=== PATIENT | female | born 1995 | race Caucasian/White ===

== ENCOUNTER 2019-07-15 22:17 | Emergency (ER) | payer OTHER, SELFPAY ==
[2019-07-15 22:20] VITALS: BP 139/86; PULSE 85; RESP 18; TEMP 37.1; O2SAT 100
[2019-07-16] LABS: Basophils Absolute Auto 0.1 K/mm3 (0.0-0.1); Eosinophils Absolute Auto 0.2 K/mm3 (0-0.3); Eosinophils Percent Auto 2.7 % (0-4.4); Hematocrit 39.3 % (37.0-47.0); Hemoglobin 13.6 g/dL (12.0-15.0); Immature Granulocyte Absolute 0.03 K/mm3 (0.00-0.031); Immature Granulocyte Percent A 0.3 % (0-0.5); Lymphocytes Absolute Auto 2.84 K/mm3 (0.9-3.2); Lymphocytes Percent Auto 31.9 % (18.3-44.2); Mean Corpuscular HGB Conc 34.6 g/dl (32-36); Mean Corpuscular Volume 89.5 fl (80-100); Mean Platelet Volume 10.4 fl (7.4-10.4); Monocytes Absolute Auto 0.6 K/mm3 (0.1-0.6); Monocytes Percent Auto 6.4 % (2.6-8.5); Neutrophils Absolute Auto 5.1 K/mm3 (1.3-6.7); Neutrophils Percent Auto 57.7 % (45.5-73.1); Platelet Count Result 335 k/mm3 (150-375); Red Blood Count 4.39 M/mm3 (4.2-5.4); Red Cell Distribution Width 11.4 % (11.5-14.5); White Blood Count 8.9 K/mm3 (4.5-10.0)
[2019-07-16 00:04] LABS: Add Urine Microscopic? YES; Appearance Urine Clear (Clear); Bilirubin Urine Negative (Negative); Blood Urine Negative (Negative); Color Urine Yellow (Yellow); Glucose Urine UA Negative (Negative); Ketones Urine Negative (Negative); Leukocyte Esterase Ur Negative LEU/UL (Negative); Mucus Urine Few /lpf; Nitrate Urine Negative (Negative); Protein Urine Negative (Negative); RBC Urine 0-2 /hpf (0-2); Specific Grav Ur 1.021 (1.001-1.035); Squamous Epithelial Cell Urine Moderate /hpf (Few); WBC Urine 0-3 /hpf
[2019-07-16 00:12] LABS: Alanine Aminotransferase 9 U/L (4-35); Alkaline Phosphatase 74 U/L (38-126); Aspartate Amino Transferase 19 U/L (14-36); Bilirubin,Total 0.9 mg/dL (0.2-1.3); Blood Urea Nitrogen 11 mg/dL (7-17); Calcium 9.1 mg/dL (8.4-10.2); Carbon Dioxide 28 mmol/L (22-30); Chloride 104 mmol/L (98-107); Estimated CRCL calculation 69 ml/min; Estimated Glomerular Filt Rate > 60; Glucose 67 mg/dL (65-105); Magnesium 2.3 mg/dL (1.6-2.3); Potassium 3.5 mmol/L (3.4-5.0); Sodium 141 mmol/L (137-145)
--- NOTE | 2019-07-16 00:13 | ECG_ITS ---
Measurements Intervals [place] Rate: 60 P: 42 MO: 124 QRS: 75 QRSD: 85 T: 50 QT: 394 QTc: 396 Interpretive Statements SINUS RHYTHM NORMAL ECG Electronically Signed On 07-16-2019 7:12:36 CDT by Santana Mcmullen D.O.
--- NOTE | 2019-07-16 00:39 | ED.ARRPALP ---
HPI - Arrhythmia/Palpitations General Chief Complaint: Arrhythmia/Palpitations Stated Complaint: FEEL HEARTBEAT IN THROAT, FATIGUE, WT LOSS Time Seen by Provider: 07/16/19 00:28 Source: patient Mode of arrival: ambulatory Limitations: no limitations History of Present Illness HPI narrative: This patient is a 23 year old female with history of anxiety and depression who presents for evaluation of palpitations. Patient started taking Effexor 3 weeks for depression, and she states for the past 2 weeks she has had constant sensation of heart pounding . She states it feels like a constant panic attack. She also reports fatigue and a 10 pound weight loss. She denies fever, chills, nausea, vomiting, cough, chest pain, abdominal pain or shortness of breath. She told her PCP her symptoms and she recommended for patent to come to ER. Patient has not spoken to her psychiatrist who started the medications about her symptoms. MD complaint: palpitations Related Data Home Medications Medication Instructions Recorded Confirmed clonazepam 1 mg PO HS 07/15/19 venlafaxine 37.5 mg PO DAILY 07/15/19 Allergies Allergy/AdvReac Type Severity Reaction Status Date / Time No Known Allergies Allergy Unverified 07/15/19 22:37 Review of Systems Review of Systems: All systems reviewed & are unremarkable except as noted in HPI and below Constitutional: Constitutional: Denies chills and Denies fever(s) ENT: Denies dysphagia, Denies dizziness, Denies nasal congestion and Denies sore throat Cardiovascular: Cardiovascular: Denies chest pain and Reports rapid heart rate Respiratory: Respiratory: Denies cough and Denies dyspnea Gastrointestinal: Gastrointestinal: Denies abdominal pain, Denies diarrhea, Denies nausea and Denies vomiting Psychiatric: Psychiatric: Reports anxiety PMFSH Past Medical History Medical History (Updated 07/16/19 @ 02:14 by Mirian Crews MD) Anxiety Depression Social History Social History (Updated 07/16/19 @ 00:42 by Mirian Crews MD) Smoking status: Never smoker Gender identity (if verbalized by the patient): Female Exam Narrative: Exam Narrative: GENERAL: Well-appearing, well-nourished, and in no acute distress. HEAD: Normocephalic, atraumatic EYES: PERRLA and EOMI, conjunctiva clear without discharge EARS: TM's clear bilaterally without erythema or dullness NOSE: Nares clear, no rhinorrhea or epistaxis THROAT:Mucous membranes moist, Oropharynx normal without erythema, exudate, peritonsillar swelling or fluctuance NECK: Supple, without lymphadenopathy or mass RESPIRATORY: No respiratory distress, Airway patent, Respirations non-labored, Clear to auscultation without rales, rhonchi or wheeze HEART: Regular rate and rhythm. No murmur heard. Normal peripheral pulses. ABDOMEN: Soft, nontender, nondistended, normal active bowel sounds. No masses. No rebound or guarding, No organomegaly. EXTREMITIES: No edema, normal strength with full range of motion. SKIN: Warm, dry, normal color without rash NEURO: Alert and oriented x3. CN 2-12 grossly intact. No focal deficits. PSYCH: Normal mood and affect. Course Reevaluation(s) Reevaluation #1: Patient is resting in bed in no acute distress. I have discussed that labs and EKG are unremarkable. Her symptoms are likely due to her starting Effexor. She will call her psychiatrist today to discuss medication side effect Date: 07/16/19 Time: 02:12 Vital Signs Vital signs: Vital Signs Temperature 98.7 F 07/15/19 22:20 Pulse Rate 85 07/15/19 22:20 Respiratory Rate 18 07/15/19 22:20 Blood Pressure 139/86 07/15/19 22:20 Pulse Oximetry 100 07/15/19 22:20 Temperature 98.7 F 07/15/19 22:20 Pulse Rate 80 07/16/19 02:00 Respiratory Rate 17 07/16/19 02:00 Blood Pressure 120/70 07/16/19 02:00 Pulse Oximetry 99 07/16/19 02:00 MDM - Arrhythmia/Palpitations Lab Data Attestation: I reviewed the patient's lab
[2019-07-16 00:46] VITALS: BP 128/67; PULSE 57; RESP 16; O2SAT 100
[2019-07-16 01:59] LABS: Thyroid Stimulating Hormone Reflex 0.496 uIU/mL (0.465-4.68)
[2019-07-16 02:00] VITALS: BP 120/70; PULSE 80; RESP 17; O2SAT 99
== END 2019-07-16 02:25 | disposition home or self-care (01) ==
PROVIDERS: Emergency Provider General Practice; PCP Family Medicine
DX: R00.2 Palpitations (principal); F41.9 Anxiety disorder, unspecified; F32.9 Major depressive disorder, single episode, unspecified
CPT/HCPCS: 36415; 80053; 81001; 81025; 83735; 84443; 85025; 93005; 99284

== ENCOUNTER 2019-09-10 16:49 | Outpatient (CLI) | payer OTHER, SELFPAY ==
--- NOTE | ~2019-09-10 | XR_ITS ---
EXAMINATION: SCOLIOSIS DATE: 09/10/2019 17:22 CDT INDICATION: Chronic back pain TECHNIQUE: Standing AP and lateral views of the thoracolumbar spine FINDINGS: There are 12 rib bearing thoracic vertebral bodies and 5 non-rib bearing lumbar type verteb ral bodies. There is no listhesis, compression deformity or vertebral body anomalies. There is mild levoscoliosis of the thoracic spine measuring 6 degrees and dextrocurvature of the lumbar spine cent ered at L3 measuring 5 degrees. IMPRESSION: 1. Mild reverse S shaped scoliosis of the thoracolumbar spine. 2. No vertebral body anomalies. Reviewed, dictated and finalized at location A.
== END 2019-09-10 16:50 | disposition home or self-care (01) ==
PROVIDERS: PCP Family Medicine; Visit Provider Family Medicine
DX: M54.9 Dorsalgia, unspecified (principal); M41.85 Other forms of scoliosis, thoracolumbar region
CPT/HCPCS: 72082

== ENCOUNTER 2019-09-25 12:29 | Outpatient (RCR) | payer OTHER, SELFPAY ==
--- NOTE | 2019-09-25 17:47 | PTOPEVAL ---
INITIAL PHYSICAL THERAPY EVALUATION and PLAN OF CARE Thank you for referring Shahrzad Austin to [facility]. Shahrzad will be seen 2x/wk x 2 wks, 1x/wk x 4 wks. Please review, sign, date and return this plan of care GRACY. I agree with and certify that the following plan of care is medically necessary. Referring Physician Date Admitting Provider: Attending Provider: Ashley Bartlett, Referring Provider: *PT Outpatient Evaluation Start: 09/25/19 12:40 Freq: Status: Active Protocol: Document 09/25/19 12:35 NORMAN (Rec: 09/25/19 13:39 NORMAN [id number]) Therapy Assessment Status Assessment Status Assessment Status Evaluation Outpatient Past Medical History Past Medical History Source of Past Medical History Patient Neurological History Hx Neurological Disorders No Significant History Cardiovascular History Hx Cardiac Disorders No Significant History Respiratory History Hx Respiratory Disorders No Significant History Gastrointestinal History Hx Gastrointestinal Disorders No Significant History Genitourinary History Hx Kidney Stones Yes Musculoskeletal History Hx Back Pain Yes Hx Scoliosis Yes: age 15 Endocrine History Hx Endocrine Disorders No Significant History Psychosocial History Hx Anxiety Yes Evaluation Information Problem Diagnosis back pain Onset couple of months ago Subjective Information began to feel cramping Query Text:As Reported By Patient/ sensation in lower back that Family wouldn't go away. At age 15 diagnosed with scoliosis - did have pain - went to PT - did relieve back pain. Sleeping - difficulty getting comfortable - generally a side sleeper - unable to do - gets an uncomfortable feeling - not using any supportive pillows. Feels stiff/tired in a.m. - doesn't really loosen up as day goes on. 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 Home Meds Must Be Re-entered With Each Visit.
--- NOTE | 2019-10-07 13:20 | PCPTNOTE ---
Pt no showed for today's appointment.Clled pt stated she was not feeling well and was sorry she did not call. Reminded pt of anointment at 2:30.
--- NOTE | 2019-10-09 15:15 | PCPTNOTE ---
Patient did not show up for scheduled appointment this date.
--- NOTE | 2019-10-14 14:30 | PCPTNOTE ---
Patient did not show up for scheduled appointment this date. Phone call to be made in regards to no show and next appointment. If misses again - will d/c from PT.
--- NOTE | 2019-10-21 14:49 | PCPTNOTE ---
Patient did not show up for scheduled appointment this date. This is her 4th n/s - will d/c from PT
--- NOTE | 2019-10-23 09:33 | PCPTNOTE ---
PHYSICAL THERAPY DISCHARGE NOTE Admitting Provider: Attending Provider: Ashley Bartlett, Patient:Shahrzad Austin Date of :1995 Shahrzad has not returned for any further treatments since 09/25/2019, therefore she will be discharged at this time. Shahrzad?s initial visit was on 09/25/2019 12:30 and she did not show for any of her other visits. The goals have not been met. Thank you for referring Shahrzad to [facility]. Please review, sign, date and return this discharge summary GRACY. I have been updated about Shahrzad's current status and I agree with discharge from the above service at this time. Referring Physician Date
== END 2019-12-09 11:35 | disposition home or self-care (01) ==
LOC: ANHPT 12:29
PROVIDERS: PCP Family Medicine; Visit Provider Family Medicine
DX: M54.9 Dorsalgia, unspecified (principal); S06.9X0D Unspecified intracranial injury without loss of consciousness, subsequent encounter
CPT/HCPCS: 97161

== ENCOUNTER 2021-02-19 19:26 | Emergency (ER) | payer OTHER, SELFPAY ==
--- NOTE | ~2021-02-19 | XR_ITS ---
EXAMINATION: XR chest 1V portable DATE: 02/19/2021 23:42 INDICATION: Cough. TECHNIQUE: A single frontal view of the chest was obtained. COMPARISON: CT abdomen and pelvis 12/18/2017 FINDINGS: The chest demonstrates clear lungs without pneumonia, pleural effusion, or pneumothorax. Th e heart size is normal. IMPRESSION: 1. No acute cardiopulmonary disease. Reviewed, dictated and finalized at location A. [employer]
[2021-02-19 19:35] VITALS: BP 127/83; PULSE 86; RESP 17; TEMP 36.7; O2SAT 100
[2021-02-19 22:55] VITALS: BP 130/79; PULSE 72; RESP 16; O2SAT 100
[2021-02-20 00:18] LABS: Basophils Percent Auto 0.3 % (0.2-1.2); Hematocrit 40.5 % (37.0-47.0); Hemoglobin 13.8 g/dL (12.0-15.0); Immature Granulocyte Absolute 0.01 K/mm3 (0.00-0.031); Immature Granulocyte Percent A 0.3 % (0-0.5); Lymphocytes Absolute Auto 1.43 K/mm3 (0.9-3.2); Lymphocytes Percent Auto 44.5 % (18.3-44.2); Mean Corpuscular HGB Conc 34.1 g/dl (32-36); Monocytes Absolute Auto 0.4 K/mm3 (0.1-0.6); Monocytes Percent Auto 11.5 % (2.6-8.5); Neutrophils Absolute Auto 1.4 K/mm3 (1.3-6.7); Neutrophils Percent Auto 43.4 % (45.5-73.1); Platelet Count Result 233 k/mm3 (150-375); Red Blood Count 4.45 M/mm3 (4.2-5.4); Red Cell Distribution Width 11.8 % (11.5-14.5); White Blood Count 3.2 K/mm3 (4.5-10.0)
[2021-02-20 00:32] LABS: Alanine Aminotransferase 11 U/L (4-35); Albumin Level 4.5 g/dL (3.5-5.1); Alkaline Phosphatase 65 U/L (38-126); Anion Gap 9 mmol/L (8-16); Aspartate Amino Transferase 28 U/L (14-36); Bilirubin,Total 0.5 mg/dL (0.2-1.3); Blood Urea Nitrogen 10 mg/dL (7-17); Calcium 8.7 mg/dL (8.4-10.2); Carbon Dioxide 26 mmol/L (22-30); Chloride 104 mmol/L (98-107); Estimated CRCL calculation 85 ml/min; Estimated Glomerular Filt Rate > 60; Glucose 98 mg/dL (65-110); Potassium 3.7 mmol/L (3.4-5.0); Sodium 139 mmol/L (137-145)
[2021-02-20] MEDS: SODIUM CHLORIDE 0.9% IV 1,000 ML 999 ML IV CONT (00:32)
[2021-02-20] MEDS: METOCLOPRAMIDE HCL INJ 10 MG/2 ML VIAL IV PUSH (00:33)
[2021-02-20 00:52] LABS: Add Urine Microscopic? YES; Appearance Urine Cloudy (Clear); Bilirubin Urine Negative (Negative); Blood Urine Negative (Negative); Color Urine Yellow (Yellow); Glucose Urine UA Negative (Negative); Ketones Urine Trace mg/dL (Negative); Leukocyte Esterase Ur Negative LEU/UL (Negative); Mucus Urine Heavy /lpf; Nitrate Urine Negative (Negative); Protein Urine Negative (Negative); RBC Urine 0-2 /hpf (0-2); Specific Grav Ur 1.017 (1.001-1.035); Squamous Epithelial Cell Urine Few /hpf (Few); Urobilinogen Urine Negative mg/dL (<2.0); WBC Urine 0-3 /hpf
--- NOTE | 2021-02-20 01:23 | ED.GENADULT ---
HPI - General Adult General Chief complaint: Unspecified Stated complaint: Migraine, congestion, sick for a week. Time Seen by Provider: 02/19/21 23:14 History of Present Illness HPI narrative: Patient is a 25-year-old female presents emerged part with chief complaint of body aches feeling sick headache and loss of taste and smell. The patient reports has not been vaccinated for Covid reports he does feels generally unwell states that a little bit of a cough denies fever. Patient reports symptoms not improved by anything or they worsened by nothing Related Data Home Medications Medication Instructions Recorded Confirmed clonazepam 1 mg PO HS 07/15/19 venlafaxine 37.5 mg PO DAILY 07/15/19 Allergies Allergy/AdvReac Type Severity Reaction Status Date / Time No Known Allergies Allergy Verified 02/19/21 22:59 Review of Systems Review of Systems: A 10 system review of systems was completed on the patient and is negative except for what is stated in the HPI. Nursing and ancillary documentation was reviewed. PMFSH Past Medical History Medical History Anxiety Depression Social History Social History Smoking status: Never smoker Gender identity (if verbalized by the patient): Female Exam Narrative: GENERAL: Well-appearing, well-nourished, and in no acute distress. HEAD: Normocephalic, atraumatic. EYES: PERRLA and EOMI. ENT: Nares clear, no rhinorrhea or epistaxis. Mucous membranes moist. NECK: Supple. CHEST: Clear to auscultation. No respiratory distress. HEART: Regular rate and rhythm. No murmur heard. Normal peripheral pulses. ABDOMEN: Soft, nontender, nondistended, normal active bowel sounds. EXTREMITIES: Normal range of motion. No edema. SKIN: Warm, dry, no rash. NEURO: No focal deficits. Alert and oriented x3. PSYCH: Normal mood and affect. Course Course Emergency Course: Chest x-ray shows no evidence of infiltrate Vital Signs Vital signs: Vital Signs Temperature 36.7 C 02/19/21 19:35 Pulse Rate 86 02/19/21 19:35 Respiratory Rate 17 02/19/21 19:35 Blood Pressure 127/83 02/19/21 19:35 Pulse Oximetry 100 02/19/21 19:35 Temperature 36.7 C 02/19/21 19:35 Pulse Rate 72 02/19/21 22:55 Respiratory Rate 16 02/19/21 22:55 Blood Pressure 130/79 02/19/21 22:55 Pulse Oximetry 100 02/19/21 22:55 Medical Decision Making Vital Signs Vital Signs: Vital Signs Temperature 36.7 C 02/19/21 19:35 Pulse Rate 86 02/19/21 19:35 Respiratory Rate 17 02/19/21 19:35 Blood Pressure 127/83 02/19/21 19:35 Pulse Oximetry 100 02/19/21 19:35 Temperature 36.7 C 02/19/21 19:35 Pulse Rate 72 02/19/21 22:55 Respiratory Rate 16 02/19/21 22:55 Blood Pressure 130/79 02/19/21 22:55 Pulse Oximetry 100 02/19/21 22:55 Lab Data Result diagrams: 02/20/21 00:06 02/20/21 00:07 Labs: Lab Results 02/20/21 02/20/21 02/20/21 Range/Units 00:06 00:07 00:18 WBC 3.2 L (4.5-10.0) K/mm3 RBC 4.45 (4.2-5.4) M/mm3 Hgb 13.8 (12.0-15.0) g/dL Hct 40.5 (37.0-47.0) % MCV 91.0 (80-100) fl MCH 31.0 (26-34) pg MCHC 34.1 (32-36) g/dl RDW 11.8 (11.5-14.5) % Plt Count 233 (150-375) k/mm3 MPV 10.0 (7.4-10.4) fl Immature Gran % (Auto) 0.3 (0-0.5) % Neut % (Auto) 43.4 L (45.5-73.1) % Lymph % (Auto) 44.5 H (18.3-44.2) % [place] % (Auto) 11.5 H (2.6-8.5) % Eos % (Auto) 0.0 (0-4.4) % Baso % (Auto) 0.3 (0.2-1.2) % Lymph # (Auto) 1.43 (0.9-3.2) K/mm3 [place] # (Auto) 0.4 (0.1-0.6) K/mm3 Eos # (Auto) 0.0 (0-0.3) K/mm3 Baso # (Auto) 0.0 (0.0-0.1) K/mm3 Abs Immat Gran (auto) 0.01 (0.00-0.031) K/mm3 Absolute Neuts (auto) 1.4 (1.3-6.7) K/mm3 Absolute Nucleated RBC 0.0 (0.0-0.012) K/mm3 Nucleated RBC % 0.0 (0.
[2021-02-20 01:39] VITALS: BP 117/78; PULSE 83; RESP 16; O2SAT 100
[2021-02-21 19:33] LABS: SARS-CoV-2 RNA PCR Positive
== END 2021-02-20 01:41 | disposition home or self-care (01) ==
PROVIDERS: Emergency Provider Emergency Medicine; PCP Family Medicine
DX: U07.1 COVID-19 (principal); F41.9 Anxiety disorder, unspecified; F32.9 Major depressive disorder, single episode, unspecified
CPT/HCPCS: 36415; 71045; 80053; 81001; 81025; 85025; 87804; 96361; 96374; 99284; C9803; J2765; J7030; U0003; U0005